=== PATIENT | female | born 1975 | race Caucasian/White ===

== ENCOUNTER 2017-01-17 09:46 | Emergency (ER) | payer BC ==
[2017-01-17] MEDS ORDERED: Ondansetron ODT 4 MG TAB ONE (10:09)
[2017-01-17] MEDS ORDERED: Naproxen 500 MG TAB ONE (10:35)
[2017-01-17] MEDS ORDERED: Benzonatate 100 MG CAP ONE (10:35)
== END 2017-01-17 11:36 | disposition home or self-care (01) ==
LOC: MADERS 09:46
DX: J20.9 Acute bronchitis, unspecified (principal); R11.10 Vomiting, unspecified; I10 Essential (primary) hypertension
CPT/HCPCS: 99283; Q0162

== ENCOUNTER 2017-12-05 15:20 | Emergency (ER) | payer BC ==
[2017-12-05] MEDS ORDERED: Naproxen 500 MG TAB ONE (15:44)
[2017-12-05] MEDS ORDERED: Acetaminophen/Codeine 30-300mg Tablet ONE (15:44)
--- NOTE | 2017-12-05 15:58 | RAD ---
LEFT HAND 3 VIEWS: DATE: 12/05/17 HISTORY: Fall. COMPARISON: None. FINDINGS: No fracture or malalignment. Soft tissues unremarkable. No radiopaque foreign object. IMPRESSION: No acute abnormality. POS: [facility]
== END 2017-12-05 16:25 | disposition home or self-care (01) ==
LOC: MADERS 15:20
DX: S60.222A Contusion of left hand, initial encounter (principal); I10 Essential (primary) hypertension; W19.XXXA Unspecified fall, initial encounter

== ENCOUNTER 2019-08-19 12:18 | Emergency (ER) | payer BC | END 2019-08-19 13:30 | disposition home or self-care (01) | LOC: MADERS 12:18 | DX: J04.0 Acute laryngitis (principal); I10 Essential (primary) hypertension; Z79.899 Other long term (current) drug therapy | CPT/HCPCS: 96372; 99282; J1040 ==

== ENCOUNTER 2021-06-22 11:08 | Emergency (ER) | payer OTHER, BC | END 2021-06-22 11:44 | disposition short-term general hospital (02) | LOC: MADERS 11:08 | DX: M79.662 Pain in left lower leg (principal); R60.0 Localized edema; I10 Essential (primary) hypertension | CPT/HCPCS: 99284 ==

== ENCOUNTER 2022-03-11 10:52 | Emergency (ER) | payer SELFPAY ==
[2022-03-11] MEDS ORDERED: methylPREDNISolone Sod Succ/PF 125 MG/2 ML VIAL ONE (11:36)
[2022-03-11] MEDS ORDERED: diphenhydrAMINE 50 MG/ML VIAL ONE (11:36)
[2022-03-11] MEDS ORDERED: Famotidine/PF 20 mg/2ml Vial ONE (11:36)
== END 2022-03-11 12:54 | disposition home or self-care (01) ==
LOC: MADERS 10:52
DX: R06.02 Shortness of breath (principal); I10 Essential (primary) hypertension; Z77.098 Contact with and (suspected) exposure to other hazardous, chiefly nonmedicinal, chemicals
CPT/HCPCS: 94640; 96374; 96375; J1200; J2930; J7620; S0028

== ENCOUNTER 2022-12-19 14:01 | Emergency (ER) | payer BC, OTHER ==
[~2022-12-19 14:01] MED LIST: Iopamidol 370 76% 100 ML VIAL ONE
[2022-12-19 14:38] LABS: #Basophils 0.1 thou/uL (0.0-0.2); #Eosinphils 0.2 thou/uL (0.0-0.7); #Monocytes 0.6 thou/uL (0.11-0.59); #Neutrophils 4.3 thou/uL (1.40-6.50); %Basophils 1.7 % (0.0-1.0); %Eosinophils 3.4 % (0.0-10.0); %Lymphocytes 27.1 % (21.0-51.0); %Monocytes 7.9 % (0.0-10.0); %Neutrophils 59.9 % (42.0-75.0); Hemoglobin 13.8 g/dL (12.0-16.0); Mean Corpuscular HGB CONC 33.4 g/dL (32.0-36.0); Mean Corpuscular Hemoglobin 30.1 pg (27.0-31.0); Mean Corpuscular Volume 90.2 fl (78.0-98.0); Mean Platelet Volume 6.3 fL (7.4-10.4); Platelet Count 404 10x3/uL (130-400); RBC Distribution Width 11.6 % (11.5-14.5); Red Blood Cell (RBC) Count 4.58 mill/uL (4.20-5.40); White Blood Cell (WBC) Count 7.2 10x3/uL (4.8-10.8)
[2022-12-19] MEDS ORDERED: Morphine 4 MG/ML VIAL ONE (14:42)
[2022-12-19] MEDS ORDERED: diphenhydrAMINE 50 MG/ML VIAL ONE (14:43)
[2022-12-19] MEDS ORDERED: Famotidine/PF 20 mg/2ml Vial ONE (14:43)
[2022-12-19] MEDS ORDERED: Ondansetron PF 4 MG/2 ML Vial ONE (14:43)
[2022-12-19 14:56] LABS: ALT (SGPT) 21 U/L (8-55); AST (SGOT) 14 U/L (5-34); Albumin 4.2 g/dL (3.5-5.0); Alkaline Phosphatase 109 U/L (40-110); Anion Gap 14 mmol/L (10-20); BUN (Urea Nitrogen) 9 mg/dL (7.0-18.7); Bilirubin, Total 0.4 mg/dL (0.2-1.2); Calc. Creatinine Clearance 0 mL/min (70-130); Calcium 9.4 mg/dL (7.8-10.44); Carbon Dioxide 30 mmol/L (22-29); Chloride 99 mmol/L (98-107); Estimated GFR 88; Globulin 2.9 g/dL (2.4-3.5); Glucose 89 mg/dL (70-105); Lipase 24 U/L (8-78); Protein, Total 7.1 g/dL (6.0-8.3); Sodium 140 mmol/L (136-145)
[2022-12-19] MEDS ORDERED: Lactated Ringer's 1,000 ML ONE (15:11)
[2022-12-19] MEDS ORDERED: Promethazine HCl 25 MG/ML VIAL ONE (15:11)
[2022-12-19] MEDS ORDERED: Potassium Chloride 20 MEQ TAB ONE (15:41)
[2022-12-19 15:55] LABS: Pregnancy Test - Urine (BHCG) Negative (Negative); Pregu Control Background? CLEAR/WHITE (CLR/WHITE); Pregu Control Bar Appear? YES (CONTROL BAR)
[2022-12-19 15:56] LABS: Bilirubin Negative (Negative); Blood, Urine Negative (Negative); Clarity Clear (Clear); Glucose, Urine (Dipstick) Negative (Negative); Ketone, Urine Negative (Negative); Leukocyte Small (Negative); Nitrite Negative (Negative); Protein, Urine (Dipstick) Negative (Neg-Trace); Urobilinogen 0.2 mg/dL (Less than 2)
[2022-12-19 15:58] LABS: Bacteria/HPF Rare-Few HPF (None Seen); RBC/HPF None Seen HPF (0-3); Squamous Epithelial 0-3 HPF (0-3); WBC/HPF 0-3 HPF (0-3)
== END 2022-12-19 18:00 | disposition home or self-care (01) ==
LOC: MADERS 14:01
DX: R11.2 Nausea with vomiting, unspecified (principal); E87.6 Hypokalemia; R10.31 Right lower quadrant pain; R10.11 Right upper quadrant pain; I10 Essential (primary) hypertension
CPT/HCPCS: 74177; 80053; 81003; 81015; 81025; 83605; 83690; 83735; 85025; 94760; 96365; 96375; J1200; J2270; J2405; J2550; J7120; Q9967; S0028

== ENCOUNTER 2023-03-27 21:15 | Emergency (ER) | payer BC ==
[2023-03-27] MEDS ORDERED: Acetaminophen 500 MG TAB ONE (22:17)
== END 2023-03-27 22:59 | disposition home or self-care (01) ==
LOC: MADERS 21:15
DX: S60.211A Contusion of right wrist, initial encounter (principal); I10 Essential (primary) hypertension; W23.0XXA Caught, crushed, jammed, or pinched between moving objects, initial encounter
CPT/HCPCS: 29125

== ENCOUNTER 2025-01-05 12:31 | Emergency (ER) | payer OTHER ==
[2025-01-05] MEDS ORDERED: Morphine 2 MG/ML VIAL ONE (12:57)
[2025-01-05] MEDS ORDERED: Ondansetron PF 4 MG/2 ML Vial ONE ×2 (12:57→14:54)
[2025-01-05] MEDS ORDERED: Pantoprazole 40 MG VIAL ONE (12:58)
[2025-01-05 13:09] LABS: Hematocrit 37.4 % (36.0-47.0); Hemoglobin 11.9 g/dL (12.0-16.0); Mean Corpuscular HGB CONC 31.7 g/dL (32.0-36.0); Mean Corpuscular Hemoglobin 28.8 pg (27.0-31.0); Mean Corpuscular Volume 90.9 fl (78.0-98.0); Mean Platelet Volume 6.1 fL (7.4-10.4); Platelet Count 389 10x3/uL (130-400); RBC Distribution Width 13.8 % (11.5-14.5); Red Blood Cell (RBC) Count 4.11 mill/uL (4.20-5.40); White Blood Cell (WBC) Count 10.8 10x3/uL (4.8-10.8)
[2025-01-05 13:19] LABS: Band 10 % (5-11); Eosinophils 2 % (0-10); Lymphocytes 4 % (21-51); MDiff Complete? YES; Manual Diff?? YES; Monocytes 3 % (0-10); Neutrophil 81 % (42-75)
[2025-01-05 13:20] LABS: Anisocytosis SLIGHT = 6-15 cells (100X) (0-5/hpf); Platelet Adequacy Comment Appears Adequate
[2025-01-05 13:24] LABS: ALT (SGPT) 23 U/L (Less than 34); AST (SGOT) 21 U/L (11-34); Alkaline Phosphatase 110 U/L (40-110); Anion Gap 16 mmol/L (10-20); BUN (Urea Nitrogen) 18 mg/dL (7.0-18.7); Bilirubin, Total 0.3 mg/dL (0.3-1.2); Calc. Creatinine Clearance 0 mL/min (70-130); Calcium 9.1 mg/dL (7.8-10.44); Carbon Dioxide 23 mmol/L (22-29); Chloride 106 mmol/L (98-107); Estimated GFR 83; Globulin 3.1 g/dL (2.4-3.5); Glucose 124 mg/dL (70-105); Lipase 29 U/L (8-78); Potassium 3.6 mmol/L (3.5-5.1); Protein, Total 7.1 g/dL (6.0-8.3); Sodium 141 mmol/L (136-145)
[2025-01-05 14:10] LABS: Bilirubin Negative (Negative); Blood, Urine Trace (Negative); Clarity Clear (Clear); Glucose, Urine (Dipstick) Negative (Negative); Ketone, Urine Negative (Negative); Leukocyte Small (Negative); Nitrite Negative (Negative); Protein, Urine (Dipstick) Negative (Neg-Trace); Specific Gravity, Urine 1.015 (1.005-1.030); Urobilinogen 0.2 mg/dL (Less than 2)
[2025-01-05 14:14] LABS: Bacteria/HPF 1+ HPF (None Seen); CAUTI Indications for Culture Acute Hematuria; RBC/HPF 0-3 HPF (0-3)
[2025-01-05 14:15] LABS: Urine Culture Reflex No No
[2025-01-05] MEDS ORDERED: Morphine 4 MG/ML VIAL ONE ×2 (14:21→18:37)
[2025-01-05] MEDS ORDERED: Piperacillin/Tazobactam 3.375 GM VIAL ONE (14:21)
[2025-01-05] MEDS ORDERED: Acetaminophen 500 MG TAB ONE (18:47)
== END 2025-01-05 20:03 | disposition short-term general hospital (02) ==
LOC: MADERS 12:31
DX: K63.89 Other specified diseases of intestine (principal); D64.9 Anemia, unspecified; I10 Essential (primary) hypertension; Z79.899 Other long term (current) drug therapy
CPT/HCPCS: 74177; 80053; 81001; 83690; 85025; 96361; 96365; 96375; 96376; J2270; J2272; J2405; J2470; J2543; Q9967